=== PATIENT | male | born 1955 | race Caucasian/White ===

== ENCOUNTER 2022-05-30 10:11 | Outpatient (CLI) | payer MEDICARE, MEDICAID, SELFPAY ==
--- NOTE | 2022-05-30 11:00 | CRLHL7_ITS ---
For Patients: As a result of the Century Cures Act, medical imaging exams and procedure reports are released immediately into your electronic medical record. You may view this report before your referring provider. If you have questions, please contact your health care provider. Indication: FOLLOW UP COLON CANCER Technique: Postcontrast CT chest, abdomen and pelvis. 98 cc Isovue 370 intravenous contrast. Oral water. Please note that all CT scans at this facility use dose modulation, iterative reconstruction, and/or weight-based dosing when appropriate to reduce radiation dose to as low as reasonably achievable. Comparison: 07/03/2021 Findings: In the chest, there is a stable low-density right thyroid lobe nodule measuring 1.7 cm. No enlarged mediastinal lymph nodes. No hilar adenopathy. No axillary adenopathy. Mild tortuosity of the thoracic aorta. No dissection or aneurysm. Vascular calcifications are present. Incidental 1.2 centimeter bleb at the right lower lobe. No pleural effusion. Dependent atelectasis. No pulmonary nodule. No fracture or suspicious osseous lesion. In the abdomen, no suspicious intrahepatic mass is noted. No stigmata of cirrhosis. The spleen is normal with incidental differential perfusion artifact. Normal pancreas. Normal adrenal glands. Incidental 1 cm cyst anterior left kidney. Normal gallbladder. Vascular calcifications. The distal abdominal aorta measures up to 3.1 cm. No retroperitoneal adenopathy. Multiple anterior abdominal wall hernia defects continue fat are similar. No inflammatory changes or fluid collection. No mesenteric or retroperitoneal adenopathy. The ureters are both normal. In the pelvis, the prostate is heterogeneous and mildly prominent with calcifications. Mild mass effect upon the inferior bladder. No bladder stone. Mild diverticulosis. No diverticulitis. No bowel obstruction. Postop changes of appendectomy and partial colon resection. No pelvic or inguinal adenopathy. Degenerative changes. No fracture. No suspicious osseous lesion. Impression: No evidence of metastatic disease. Mild aneurysmal dilation of the distal abdominal aorta measuring 3.1 cm. Stable multiple anterior abdominal wall hernia defect containing fat. Mild colonic diverticulosis without acute inflammation. Stable right thyroid lobe nodule and left renal cyst. Please note that all CT scans at this facility use dose modulation, iterative reconstruction, and/or weight-based dosing when appropriate to reduce radiation dose to as low as reasonably achievable. Dictated by Tanner Post MD @ 06/01/2022 9:30:14 AM (Electronically Signed)
== END 2022-05-30 10:12 | disposition home or self-care (01) ==
PROVIDERS: PCP Family Medicine; Visit Provider Internal Medicine Hematology & Oncology
DX: C18.9 Malignant neoplasm of colon, unspecified (principal); I71.40 Abdominal aortic aneurysm, without rupture, unspecified; K43.9 Ventral hernia without obstruction or gangrene; K57.30 Diverticulosis of large intestine without perforation or abscess without bleeding; E04.1 Nontoxic single thyroid nodule
CPT/HCPCS: 71260; 74177; 80053; 82378; 85025; Q9967

== ENCOUNTER 2022-06-25 12:50 | Outpatient (RCR) | payer MEDICARE, MEDICAID, SELFPAY | END 2022-12-22 23:59 | disposition home or self-care (01) | LOC: CCIC 12:50 | PROVIDERS: PCP Family Medicine; Visit Provider Internal Medicine Medical Oncology | DX: C18.4 Malignant neoplasm of transverse colon (principal) | CPT/HCPCS: 99212; 99214 ==

== ENCOUNTER 2022-09-18 13:50 | Outpatient (CLI) | payer BC, SELFPAY | END 2022-09-18 13:51 | disposition home or self-care (01) | PROVIDERS: PCP Family Medicine; Visit Provider Family Medicine | DX: Z00.00 Encounter for general adult medical examination without abnormal findings (principal); I10 Essential (primary) hypertension; E78.5 Hyperlipidemia, unspecified; E04.1 Nontoxic single thyroid nodule; M10.9 Gout, unspecified; Z12.5 Encounter for screening for malignant neoplasm of prostate | CPT/HCPCS: 80061; 82607; 84153 ==

== ENCOUNTER 2023-06-17 13:16 | Outpatient (CLI) | payer BC, SELFPAY ==
--- NOTE | 2023-06-17 14:00 | CRLHL7_ITS ---
For Patients: As a result of the Century Cures Act, medical imaging exams and procedure reports are released immediately into your electronic medical record. You may view this report before your referring provider. If you have questions, please contact your health care provider. Indication: F/U COLON CANCER Technique: CT Chest/Abd/Pelvis 112CC ISOVUE 370 AND WATER PREP Please note that all CT scans at this facility use dose modulation, iterative reconstruction, and/or weight-based dosing when appropriate to reduce radiation dose to as low as reasonably achievable. Comparison: 05/30/2022 Findings: In the chest, stable appearance of the thyroid is present. Subcentimeter bilateral axillary lymph nodes are unchanged. No enlarged mediastinal or hilar lymph nodes. No pleural or pericardial effusions. No pulmonary embolism. Right lower lobe atelectasis. No infiltrate or edema. No pulmonary nodule or pneumothorax. No fracture. No suspicious osseous findings. In the abdomen, there is no intrahepatic mass. Gallbladder is normal. Normal spleen. Adrenal glands are unremarkable. Normal kidneys. Small cyst left kidney is unchanged. Unremarkable pancreas. No hiatal hernia. Stomach normal. Normal jejunum and ileum. No retroperitoneal or mesenteric adenopathy. Postop changes of partial colectomy. No bowel obstruction. Small fat filled hernias are present in the midline of the upper abdomen. Atherosclerotic disease. Mild aneurysm of the distal abdominal aorta measuring 3.1 cm. In the pelvis, fat filled inguinal hernias are present. Prostate is heterogeneous with mass effect upon the inferior bladder. The bladder is otherwise normal. Normal ureters. No pelvic or inguinal adenopathy. Degenerative changes are present within the lumbar spine. No vertebral body compression fracture. Degenerative spurring of both hip joints. Impression: No evidence of metastatic disease. Similar aneurysm of the distal abdominal aorta. Unchanged small fat filled abdominal wall hernias. Stable right thyroid lobe nodule and left renal cyst. Please note that all CT scans at this facility use dose modulation, iterative reconstruction, and/or weight-based dosing when appropriate to reduce radiation dose to as low as reasonably achievable. Dictated by Tanner Post MD @ 06/18/2023 12:56:48 PM (Electronically Signed)
== END 2023-06-17 13:17 | disposition home or self-care (01) ==
PROVIDERS: PCP Family Medicine; Visit Provider Internal Medicine Medical Oncology
DX: C18.9 Malignant neoplasm of colon, unspecified (principal); I71.40 Abdominal aortic aneurysm, without rupture, unspecified; K43.9 Ventral hernia without obstruction or gangrene; E04.1 Nontoxic single thyroid nodule; N28.1 Cyst of kidney, acquired
CPT/HCPCS: 71260; 74177; 80053; 85025; Q9967

== ENCOUNTER 2023-06-26 09:00 | Outpatient (RCR) | payer BC, SELFPAY ==
[2023-06-17 13:38] LABS: Basophils Absolute Auto 0.01 K/uL (0.00-0.30); Basophils Percent Auto 0.1 % (0.0-3.0); Eosinophils Absolute Auto 0.05 K/uL (0.00-0.50); Eosinophils Percent Auto 0.7 % (0.0-7.0); Hematocrit 41.4 % (37.0-53.0); Hemoglobin* 13.9 gm/dL (13.5-17.5); Immature Granulocytes Abs Auto 0.06 K/uL (0.00-0.30); Immature Granulocytes Pct Auto 0.8 %; Lymphocytes Absolute Auto 2.05 K/uL (0.90-2.90); Lymphocytes Percent Auto 28.5 % (20-44); Mean Corpuscular HGB Conc 34 gm/dL (32-36); Mean Corpuscular Hemoglobin 32 pg (26-34); Mean Corpuscular Volume 94 fL (80-100); Neutrophils Percent Auto 59.9 % (42.0-72.0); Platelet Count* 261 K/uL (140-440); RDW Coefficient of Variation % 12.6 % (11.5-15.5); Red Blood Count 4.41 m/uL (4.30-5.90); White Blood Count* 7.19 K/uL (4.50-11.00)
[2023-06-17 13:41] LABS: Slide Review Reflex No
[2023-06-17 13:48] LABS: Albumin* 4.3 g/dL (3.3-5.0); Chloride* 103 mmol/L (96-114)
[2023-06-17 13:49] LABS: Potassium* 4.4 mmol/L (3.6-5.1); Sodium* 139 mmol/L (135-149)
[2023-06-17 13:51] LABS: Anion Gap 9 mEq/L (7-15); Bilirubin Total* 0.7 mg/dL (0.1-1.5); Carbon Dioxide* 27 mmol/L (20-32); Creatinine* 0.8 mg/dL (0.5-1.5); Estimated Glomerular Filt Rate 98 ml/min; Total Protein* 7.5 g/dL (6.0-8.3)
[2023-06-17 13:52] LABS: Alanine Aminotransferase* 22 U/L (4-50); Alkaline Phosphatase* 48 U/L (40-150); Aspartate Amino Transferase* 29 U/L (12-35); Blood Urea Nitrogen* 11 mg/dL (7-30); Glucose* 112 mg/dL (60-115)
[2023-06-18 18:36] LABS: Carcinoembryonic Antigen 1.3 ng/mL (<=3.8)
== END 2023-12-14 23:59 | disposition home or self-care (01) ==
LOC: CCIC 09:00
PROVIDERS: Internal Medicine Medical Oncology; PCP Family Medicine; Visit Provider Internal Medicine Hematology & Oncology
DX: C18.4 Malignant neoplasm of transverse colon (principal)
CPT/HCPCS: 36415; 80053; 82378; 85025; 99212; 99213; 99214

== ENCOUNTER 2023-09-10 11:29 | Outpatient (CLI) | payer BC, SELFPAY | END 2023-09-10 11:30 | disposition home or self-care (01) | PROVIDERS: PCP Family Medicine; Visit Provider Family Medicine | DX: E78.2 Mixed hyperlipidemia (principal); Z12.5 Encounter for screening for malignant neoplasm of prostate | CPT/HCPCS: 80053; 80061; 82378; G0103 ==

== ENCOUNTER 2024-05-28 08:08 | Outpatient (CLI) | payer MEDICARE, OTHER, SELFPAY ==
--- NOTE | 2024-05-28 08:19 | W.ANESCHARGE ---
Anesthesia Charges Start Date/Time Anesthesia Start Date: 05/28/24 Anesthesia Start Time: 08:27 Stop Date/Time Anesthesia Stop Date: 05/28/24 Anesthesia Stop Time: 08:50
--- NOTE | 2024-05-28 09:05 | W.ANESCHARGE ---
Anesthesia Charges Start Date/Time Anesthesia Start Date: 05/28/24 Anesthesia Start Time: 08:27 Stop Date/Time Anesthesia Stop Date: 05/28/24 Anesthesia Stop Time: 08:50
== END 2024-05-28 08:09 | disposition home or self-care (01) ==
LOC: OP CLINIC 08:08
PROVIDERS: PCP Family Medicine; Visit Provider Internal Medicine
DX: D12.5 Benign neoplasm of sigmoid colon (principal); K57.30 Diverticulosis of large intestine without perforation or abscess without bleeding; Z86.0100 Personal history of colon polyps, unspecified
CPT/HCPCS: 00811; 45380; 88305; J2704

== ENCOUNTER 2024-07-14 10:34 | Outpatient (CLI) | payer MEDICARE, BC, SELFPAY ==
--- NOTE | 2024-07-14 11:00 | CRLHL7_ITS ---
For Patients: As a result of the Century Cures Act, medical imaging exams and procedure reports are released immediately into your electronic medical record. You may view this report before your referring provider. If you have questions, please contact your health care provider. INDICATIONS: Malignant neoplasm of transverse colon. TECHNIQUE: CT chest, abdomen and pelvis acquired with 121 cc of Isovue 370 IV contrast. COMPARISON: CT chest, abdomen and pelvis 06/17/2023. FINDINGS: Chest: No pleural or pericardial effusions. No pathologic lymphadenopathy. The thoracic aorta and main pulmonary arteries are normal in caliber. Heart size is within normal limits. Faint coronary artery calcifications. Stable nodule in the right thyroid lobe. Soft tissues of the thoracic wall are unremarkable. No pneumothorax. Central airways are patent. Mild bibasilar atelectasis. No suspicious nodules or acute airspace disease. Abdomen: Liver, spleen, pancreas and adrenal glands are unremarkable. Stable small left renal cyst. No hydronephrosis or suspicious renal mass. No calcified gallstones or biliary ductal dilatation. Stable partial colectomy changes. Distal colonic diverticulosis without evidence of acute diverticulitis. No bowel obstruction or acute inflammatory change of the GI tract. Fat containing ventral hernias are unchanged. No pathologic lymphadenopathy or free fluid. Atherosclerotic disease. Abdominal aortic aneurysm is 3.3 x 3.4 cm and was 3.1 x 3.2 cm. Pelvis: Prostatomegaly. Bladder is unremarkable. Sigmoid diverticulosis without evidence of acute diverticulitis. No pathologic lymphadenopathy or free fluid. Bone windows: Degenerative changes spine and pelvis. No acute or suspicious abnormality. IMPRESSION: 1. No evidence of recurrent or metastatic disease. 2. Abdominal aortic aneurysm is 3.3 x 3.4 cm and was 3.1 x 3.2 cm. 3. Examination of the chest, abdomen and pelvis is otherwise unchanged. Dictated by Ahmet Azevedo MD @ 07/15/2024 8:17:03 AM Please note that all CT scans at this facility use dose modulation, iterative reconstruction, and/or weight-based dosing when appropriate to reduce radiation dose to as low as reasonably achievable. Dictated by: Ahmet Azevedo MD @ 07/15/2024 08:17:22 (Electronically Signed)
== END 2024-07-14 10:35 | disposition home or self-care (01) ==
LOC: CT 10:40
PROVIDERS: PCP Family Medicine; Visit Provider Internal Medicine Hematology & Oncology
DX: C18.4 Malignant neoplasm of transverse colon (principal); I71.40 Abdominal aortic aneurysm, without rupture, unspecified
CPT/HCPCS: 71260; 74177; Q9967

== ENCOUNTER 2024-07-21 07:33 | Outpatient (RCR) | payer MEDICARE, BC, OTHER, SELFPAY ==
[2024-06-18 11:51] LABS: Basophils Absolute Auto 0.02 K/uL (0.00-0.30); Basophils Percent Auto 0.3 % (0.0-3.0); Eosinophils Absolute Auto 0.13 K/uL (0.00-0.50); Eosinophils Percent Auto 1.9 % (0.0-7.0); Hematocrit 41.9 % (37.0-53.0); Hemoglobin* 14.1 gm/dL (13.5-17.5); Immature Granulocytes Abs Auto 0.02 K/uL (0.00-0.30); Immature Granulocytes Pct Auto 0.3 %; Lymphocytes Absolute Auto 2.05 K/uL (0.90-2.90); Lymphocytes Percent Auto 30.4 % (20-44); Mean Corpuscular HGB Conc 34 gm/dL (32-36); Mean Corpuscular Hemoglobin 31 pg (26-34); Mean Corpuscular Volume 93 fL (80-100); Monocytes Percent Auto 12.1 % (0.0-11.0); Neutrophils Absolute Auto 3.71 K/uL (1.7-7.0); Platelet Count* 222 K/uL (140-440); RDW Coefficient of Variation % 12.6 % (11.5-15.5); Red Blood Count 4.53 m/uL (4.30-5.90); White Blood Count* 6.75 K/uL (4.50-11.00)
[2024-06-18 11:53] LABS: Slide Review Reflex No
[2024-06-18 12:08] LABS: Chloride* 104 mmol/L (96-114)
[2024-06-18 12:09] LABS: Albumin* 4.1 g/dL (3.3-5.0); Potassium* 4.1 mmol/L (3.6-5.1); Sodium* 138 mmol/L (135-149)
[2024-06-18 12:11] LABS: Anion Gap 6 mEq/L (7-15); Carbon Dioxide* 28 mmol/L (20-32); Creatinine* 0.8 mg/dL (0.5-1.5); Estimated Glomerular Filt Rate 97 ml/min
[2024-06-18 12:12] LABS: Alanine Aminotransferase* 21 U/L (4-50); Alkaline Phosphatase* 53 U/L (40-150); Aspartate Amino Transferase* 22 U/L (12-35); Bilirubin Total* 0.6 mg/dL (0.1-1.5); Blood Urea Nitrogen* 13 mg/dL (7-30); Glucose* 116 mg/dL (60-115)
[2024-06-20 09:10] LABS: Carcinoembryonic Antigen 1.6 ng/mL (<=3.8)
== END 2024-12-15 23:59 | disposition home or self-care (01) ==
LOC: CCIC 07:33
PROVIDERS: PCP Family Medicine; Referring Provider Family Medicine; Visit Provider Internal Medicine Hematology & Oncology
DX: C18.4 Malignant neoplasm of transverse colon (principal)
CPT/HCPCS: 36415; 80053; 82378; 85025; 99213; 99214; G0463

== ENCOUNTER 2024-09-09 11:21 | Outpatient (CLI) | payer MEDICARE, BC, OTHER, SELFPAY | END 2024-09-09 11:22 | disposition home or self-care (01) | PROVIDERS: PCP Family Medicine; Visit Provider Family Medicine | DX: I10 Essential (primary) hypertension (principal); E04.1 Nontoxic single thyroid nodule; E78.2 Mixed hyperlipidemia; E53.8 Deficiency of other specified B group vitamins; R35.0 Frequency of micturition; Z12.5 Encounter for screening for malignant neoplasm of prostate; Z13.29 Encounter for screening for other suspected endocrine disorder | CPT/HCPCS: 80061; 82607; 84443; G0103 ==